=== PATIENT | female | born 1995 | race Caucasian/White ===

== ENCOUNTER → 2018-09-26 | Outpatient (REF) | payer OTHER ==
[2018-09-26 18:25] LABS: CHLAMYDIA DNA AMPLIFICATION NEGATIVE (NEGATIVE); GC DNA AMPLIFICATION NEGATIVE (NEGATIVE)
== END ==
LOC: M SFHCWAGY 14:48
PROVIDERS: ATTEND Nurse Practitioner Family
DX: Z12.4 Encounter for screening for malignant neoplasm of cervix (principal)

== ENCOUNTER 2021-03-18 23:52 | Emergency (ER) | payer OTHER ==
[~2021-03-18] VITALS: Ht 157.5 cm; Wt 132.0 kg
[2021-03-18 23:54] VITALS: BP 125/90
[2021-03-19] MEDS ORDERED: DEPO150I IM (00:02)
== END 2021-03-19 04:33 | disposition left against medical advice (07) ==
LOC: M ED 23:52
DX: Z53.21 Procedure and treatment not carried out due to patient leaving prior to being seen by health care provider (principal)

== ENCOUNTER 2021-07-28 00:20 | Emergency (ER) | payer OTHER ==
[~2021-07-28] VITALS: Ht 157.5 cm; Wt 134.9 kg
[~2021-07-28 00:20] MED LIST: DEPO150I IM
[2021-07-28 01:28] LABS: BASO # 0.1 10^3/uL (0.0-0.2); BASO % 0.7 % (0.0-1.0); EOS # 0.3 10^3/uL (0.0-0.5); EOS % 3.9 % (0.0-3.0); HEMATOCRIT 41.7 % (36.0-47.0); HEMOGLOBIN 14.9 g/dl (12.0-15.5); LYMPH % 45.1 % (24.0-44.0); MEAN CORPUSCULAR HEMOGLOBIN 31.5 pg (27.0-33.0); MEAN CORPUSCULAR HGB CONC 35.7 g/dl (32.0-36.5); MEAN CORPUSCULAR VOLUME 88.2 fl (80.0-96.0); MONO # 0.7 10^3/uL (0.0-0.8); MONO % 8.3 % (2.0-8.0); NEUTROPHILS # 3.7 10^3/uL (1.5-8.5); NEUTROPHILS % 41.5 % (36.0-66.0); PLATELET COUNT, AUTOMATED 300 10^3/uL (150-450); RED BLOOD COUNT 4.73 10^6/uL (4.00-5.40); WHITE BLOOD COUNT 8.8 10^3/uL (4.0-10.0)
[2021-07-28] MEDS ORDERED: MECLIZINE 25 MG TABLET PO ONE (01:40)
[2021-07-28 02:00] LABS: ALBUMIN 3.5 GM/DL (3.2-5.2); ALT/SGPT 26 U/L (12-78); BILIRUBIN,DIRECT 0.1 MG/DL (0.0-0.2); BILIRUBIN,TOTAL 0.3 MG/DL (0.2-1.0); BLOOD UREA NITROGEN 7 MG/DL (7-18); CALCIUM LEVEL 8.6 MG/DL (8.5-10.1); CARBON DIOXIDE LEVEL 25 MEQ/L (21-32); CHLORIDE LEVEL 110 MEQ/L (98-107); CREATININE FOR GFR 0.71 MG/DL (0.55-1.30); GLOMERULAR FILTRATION RATE > 60.0 (>60); GLUCOSE, FASTING 113 MG/DL (70-100); HCG, SERUM QUANTITATIVE < 1.0 MIU/ML; SODIUM LEVEL 139 MEQ/L (136-145); TOTAL PROTEIN 7.2 GM/DL (6.4-8.2)
[2021-07-28] MEDS ORDERED: NS 1,000 ML IV ONE (04:25)
[2021-07-28] MEDS ORDERED: ISOVUE-370 76% 100ML VIAL As Ordered ONE (04:32)
[2021-07-28] MEDS ORDERED: DEPO150I IM (06:43)
[2021-07-28] MEDS ORDERED: HOME MED LIST COMPLETE! XX SCH (06:45)
[2021-07-28] MEDS ORDERED: diazePAM 10MG/2ML SYRINGE (J3360 PER 5MG) IV ONE (07:00)
[2021-07-28] MEDS ORDERED: DOXY-443 PO (14:51)
[2021-07-28] MEDS ORDERED: SUDA240T2 PO (14:52)
[2021-07-28] MEDS ORDERED: MECL1TAB31 PO (14:53)
[2021-07-28] MEDS ORDERED: AFRISPR3 (14:53)
[2021-07-28 15:01] VITALS: BP 140/80
== END 2021-07-28 15:03 | disposition home or self-care (01) ==
LOC: M ED 00:20
DX: J32.9 Chronic sinusitis, unspecified (principal); H81.399 Other peripheral vertigo, unspecified ear; Z79.3 Long term (current) use of hormonal contraceptives
CPT/HCPCS: 70450; 70496; 70498; 70544; 70551; 80048; 80076; 84702; 85025; 87486; 87581; 87633; 87798; 93005; 96374; 99285; J3360; Q9967